=== PATIENT | female | born 1945 | race American Indian/Alaskan Native ===

== ENCOUNTER 2017-11-06 14:03 | Emergency (ER) | payer MEDICARE, MEDICAID ==
[2017-11-06 14:03] VITALS: BMI 30.2
[2017-11-06 14:36] VITALS: BP 162/96; PULSE 87; RESP 20; TEMP 98; O2SAT 97
--- NOTE | 2017-11-06 15:46 | ED PDOC ---
Lower Extremity Pain/Injury Time Seen by Provider: 11/06/17 14:43 Chief Complaint (Nursing): Lower Extremity Problem/Injury Chief Complaint (Provider): Lower Extremity Problem/Injury History Per: Patient History/Exam Limitations: no limitations Onset/Duration Of Symptoms: Days (x2) Current Symptoms Are (Timing): Still Present Additional Complaint(s): 72 year old female with medical history of hypertension, COPD and hypercholesterolemia, who presents to the emergency department with a complaint of right ankle and foot pain ongoing since last night. Patient stated she was doing foot strengthening exercises in bed when she heard a "pop". Denied any numbness or weakness. She also reported taking Tramadol (prescribed for chronic hip pain)which did not alleviate pain. PMD: Abdoulaye Guo MD Past Medical History Reviewed: Historical Data, Nursing Documentation, Vital Signs Vital Signs: Last Vital Signs Temp 98.0 F 11/06/17 14:33 Pulse 87 11/06/17 14:33 Resp 20 11/06/17 14:33 BP 162/96 H 11/06/17 14:33 Pulse Ox 97 11/06/17 14:33 - Medical History PMH: Asthma, COPD, HTN, Hypercholesterolemia, Pneumonia Denies: Chronic Kidney Disease - Surgical History Surgical History: Denies: No Surg Hx - Family History Family History: States: Unknown Family Hx - Social History Current smoker - smoking cessation education provided: No Ex-Smoker (has not smoked in the last 12 months): Yes Alcohol: None Drugs: Denies - Home Medications Home Medications: Ambulatory Orders Medication Instructions Recorded ALPRAZolam [Xanax] 0.25 mg PO BID #0 tab 08/23/16 Acetylcysteine [Mucomyst 10% 4ML] 2 ml IH RTID #0 bertha 08/23/16 Albuterol 0.083% [Albuterol 0.083% 3 ml IH QID PRN #0 neb 08/23/16 Inhal Bertha (2.5 mg/3 ml) UD] Albuterol Sulfate [Proair Hfa] 2 puff IH HS PRN #0 inh 08/23/16 Albuterol/Ipratropium [Duoneb 3 3 ml INH RQ6 #0 neb 08/23/16 mg/0.5 mg (3 ml) UD] Aspirin [Ecotrin] 81 mg PO DAILY #0 tabec 08/23/16 Budesonide [Pulmicort Respules] 0.25 mg INH RTID #0 neb 08/23/16 Calcium Carbonate [Oscal] 500 mg PO TID #0 tab 08/23/16 Ergocalciferol (Vitamin D2) 50,000 iu PO QWK #0 capsule 08/23/16 [Vitamin D2] Fluticasone/Salmeterol 500/50 1 puff IH Q12 #0 puff 08/23/16 [Advair Diskus 500/50] Home Med 1 drop BOTHEYES HS #0 ea 08/23/16 Home Med 65 mg PO BID #0 ea 08/23/16 Losartan [Cozaar] 100 mg PO DAILY #0 tab 08/23/16 Methylprednisolone [Medrol Dose 4 mg PO DAILY #21 mg 08/23/16 Pack (21 tabs)] Montelukast [Singulair] 10 mg PO HS #0 tab 08/23/16 Multivit-Min/FA/Lycopen/Lutein 1 each PO DAILY #0 tablet 08/23/16 [Centrum Silver Tablet] [id number] Ethyl Esters [OMEGA 3] 1 g PO BID #0 capsule 08/23/16 Potassium Chloride [K-Dur 20 mEq 20 meq PO HS #0 tab 08/23/16 ER Tab] Sevelamer Carbonate [Renvela] 800 mg PO DAILY #0 tab 08/23/16 Telmisartan/Hydrochlorothiazid 1 tab PO DAILY #0 tablet 08/23/16 [Telmisartan-Hctz 80-25 mg Tab] amLODIPine [Norvasc] 10 mg PO DAILY #0 tab 08/23/16 diltiaZEM ER [Cardizem SR] 1 cap PO DAILY #0 c12 08/23/16 hydrALAZINE [Apresoline] 25 mg PO Q8H #0 tab 08/23/16 Naproxen 375 mg PO Q12 PRN #14 tablet 11/06/17 - Allergies Allergies/Adverse Reactions: Allergies Allergy/AdvReac Type Severity Reaction Status Date / Time No Known Allergies Allergy Verified 11/06/17 14:33 Review of Systems ROS Statement: Except As Marked, All Systems Reviewed And Found Negative Musculoskeletal: Positive for: Foot Pain (right ankle and foot with swelling) Neurological: Negative for: Weakness, Numbness Physical Exam - Reviewed Nursing Documentation Reviewed: Yes Vital Signs Reviewed: Yes - Physical Exam Appears: Positive for: Well, Non-toxic, No Acute Distress Pulses-Dorsalis Pedis (R): 2+ Pulses-Post. Tibialis (R): 2+ Extremity: Positive for: Tenderness (dorsal medial aspect of right foot on palpation, approximately to 4th-5th metatarsals), Swelling (right ankle), Other (right leg sensationally and neurovascularly intact). Negative for: Pedal Edema (right) Neurologic/Psych: Positive for: Alert, Oriented. Negative for: Motor/Sensory Deficits - ECG O2 Sat by Pulse Oximetry: 97 (RA) Pulse Ox Interpretation: Normal Medical Decision Making Medical Decision Making: Initial Impression: Foot pain; Ankle pain Initial Plan: * Toradol 30mg IM * Xray ankle (right) * Xray foot (right) ____ Time: 1651 --Xray foot (right) FINDINGS: BONES: Normal. No fracture. JOINTS: Valgus minor hallux valgus deformity. SOFT TISSUES: Normal. OTHER FINDINGS: None. IMPRESSION: No acute findings related to/accounting for the clinical presentation. Additional benign and/or incidental findings described above. --Xray ankle (right) FINDINGS: BONES: Normal. No fracture. Plantar spur identified. JOINTS: Normal. No osteoarthritis. Ankle mortise maintained. Talar dome intact SOFT TISSUES: Normal. OTHER FINDINGS: None. IMPRESSION: Soft tissue swelling without acute articular or osseous abnormality Time: 1657 --Upon provider reevaluation, patient is medically stable and requires no further treatment in the ED at this time. Patient will be discharged home with Rx for Naproxen 375mg and educated on RICE method. Jose wrap and air cast applied to right foot/ankle. Counseling was provided and all questions were answered regarding diagnosis and need for follow up with primary care coordinator. There is agreement to discharge plan. Return if symptoms persist or worsen. Clinical Impression: Ankle sprain; foot sprain Scribe Attestation: Documented by Lisa Cobb, acting as a scribe for Ava Hastings PA-C. Provider Scribe Attestation: All medical record entries made by the Scribe were at my direction and personally dictated by me. I have reviewed the chart and agree that the record accurately reflects my personal performance of the history, physical exam, medical decision making, and the department course for this patient. I have also personally directed, reviewed, and agree with the discharge instructions and disposition. Disposition - Clinical Impression Clinical Impression: Ankle sprain, Foot sprain - Patient ED Disposition Is Patient to be Admitted: No Counseled Patient/Family Regarding: Studies Performed, Diagnosis, Need For Followup - Disposition Referrals: Fiordaliza Leyva DPM [Staff Provider] - Disposition: Routine/Home Disposition Time: 16:58 Condition: IMPROVED Prescriptions: Naproxen 375 mg PO Q12 PRN #14 tablet PRN Reason: Pain, Moderate (4-7) Instructions: Ankle Sprain (ED), Foot Sprain (ED), RICE Therapy (ED) Forms: [employer] ([place])
--- NOTE | 2017-11-06 16:53 | RAD ---
PROCEDURE: Right Ankle Radiographs. HISTORY: Posttraumatic right ankle pain and swelling. COMPARISON: None FINDINGS: BONES: Normal. No fracture. Plantar spur identified. JOINTS: Normal. No osteoarthritis. Ankle mortise maintained. Talar dome intact SOFT TISSUES: Normal. OTHER FINDINGS: None. IMPRESSION: Soft tissue swelling without acute articular or osseous abnormality.
--- NOTE | 2017-11-06 16:54 | RAD ---
PROCEDURE: Right Foot Radiographs. HISTORY: pain, swelling COMPARISON: None. FINDINGS: BONES: Normal. No fracture. JOINTS: Valgus minor hallux valgus deformity. SOFT TISSUES: Normal. OTHER FINDINGS: None. IMPRESSION: No acute findings related to/accounting for the clinical presentation. Additional benign and/or incidental findings described above.
== END 2017-11-06 18:02 | disposition home or self-care (01) ==
LOC: H.ER 14:03
DX: S93.401A Sprain of unspecified ligament of right ankle, initial encounter (principal); X50.9XXA Other and unspecified overexertion or strenuous movements or postures, initial encounter; Y92.89 Other specified places as the place of occurrence of the external cause
CPT/HCPCS: 29540; 73610; 73630; 96372; 99283; J1885